=== PATIENT | male | born 1945 | race Caucasian/White ===

== ENCOUNTER 2017-03-06 14:59 | Outpatient (CLI) | END 2017-03-06 15:00 | disposition home or self-care (01) | LOC: AMBL 14:59 | PROVIDERS: ATTEND Internal Medicine Geriatric Medicine | DX: M25.561 Pain in right knee (principal); G20 Parkinson's disease; M62.462 Contracture of muscle, left lower leg; M62.461 Contracture of muscle, right lower leg ==

== ENCOUNTER 2017-03-09 14:59 | Outpatient (CLI) | payer OTHER | END 2017-03-09 15:00 | LOC: AMBL 14:59 | PROVIDERS: ATTEND Emergency Medicine | DX: R40.4 Transient alteration of awareness (principal); R06.9 Unspecified abnormalities of breathing; R41.0 Disorientation, unspecified; R25.8 Other abnormal involuntary movements; I49.3 Ventricular premature depolarization; R73.9 Hyperglycemia, unspecified; R40.2421 Glasgow coma scale score 9-12, in the field [EMT or ambulance]; Z98.890 Other specified postprocedural states ==

== ENCOUNTER 2018-02-15 16:34 | Outpatient (CLI) | END 2018-02-15 16:35 | disposition left against medical advice (07) | LOC: AMBL 16:34 | PROVIDERS: ATTEND Emergency Medicine | DX: S80.212A Abrasion, left knee, initial encounter (principal); V00.811A Fall from moving wheelchair (powered), initial encounter; G20 Parkinson's disease ==